=== PATIENT | female | born 1955 | race Caucasian/White ===

== ENCOUNTER 2021-02-28 08:45 | Day surgery (SDC) | payer MEDICARE, OTHER ==
--- NOTE | 2021-02-15 11:25 | NUR ---
Patient is having a right total knee replacement on 02/28. She will be getting a walker and will bring it the day of surgery. She has a ramp into her house and 2 stairs to her bedroom. She has a walk-in shower, a hand-held shower head. They have ordered a toilet seat riser. She lives with her . He will be taking her to her physical therapy appts. Her first appt. is on 03/07.
[~2021-02-28] VITALS: Ht 160 cm; Wt 67.6 kg
[~2021-02-28 08:45] MED LIST: ALEVE220 M1; HAIR SKIN NAIL1 EACH; NORCO 5-325 TA1 EACH PO
[2021-02-28] MEDS ORDERED: CELECOXIB200 MG PO (12:55)
[2021-02-28] MEDS ORDERED: XARELTO10 MG PO (12:55)
[2021-02-28] MEDS ORDERED: ASPIRIN EC325 MG PO (12:55)
[2021-02-28] MEDS ORDERED: SENNA LAX8.6 MG PO (12:56)
[2021-02-28] MEDS ORDERED: OXYCODONE HCL5 MG PO (12:56)
[2021-02-28] MEDS ORDERED: GABAPENTIN300 MG PO (12:56)
--- NOTE | 2021-02-28 13:07 | NUR ---
02/28/21 1307 Nakita Phipps 1300- PT ARRIVES TO PACU AROUSABLE TO VOICE. PT VERY DROWSY AND FALLS ASLEEP WHEN NOT BEING TALKED TO. RESP EVEN AND UNLABORED. OXYGEN SAT HIGH 90'S TO 100% ON 6L VIA MASK. ON-Q PUMP INFUSING AT 4 ML/HR. 1307- CRYOCUFF PLACED TO PT'S RIGHT KNEE WITH DRESSING IN BETWEEN SKIN AND CRYOCUFF BY LUCHO KLEIN RN.
--- NOTE | 2021-02-28 14:44 | NUR ---
1334: PT ARRIVES TO UNIT VIA STRETCHER FROM PACU. ALERT AND ORIENTED. CONVERSES WITH RN. VSS, RESP EVEN AND UNLABORED. CMS WNL. CRYO CUFF, SCDS AND COMPRESSION SOCKS IN PLACE. DRESSING WITH SMALL AMOUNT OF SHADOWING, WILL CONT TO OBSERVE. DENIES PAIN AND NAUSEA AT THIS TIME. SPINAL LEVEL T-5. ICE WATER AND APPLE SAUCE PROVIDED. ATTENTIVE AT THE BEDSIDE. NO NEEDS VOICED, CALL LIGHT WITHIN REACH 1427: PT WITH CALL FOR RN. REPORTS INCREASING PAIN LEVEL SPINAL LEVEL WEARS OFF. SCHED RX ADMINISTERED ORDERED, SEE PT EMAR. VSS, RESP EVEN AND UNLABORED. CONTS TO DENY NAUSEA. NO CHANGE TO DRESSING AND CMS WNL. NO FURTHER NEEDS VOICED. CALL LIGHT WITHIN REACH
--- NOTE | 2021-02-28 15:03 | NUR ---
1455: PHYSICAL THERAPIST ARRIVES AT THE BEDSIDE FOR THERAPY SESSION. IV CONVERTED TO SL. PT REPORTS IMPROVING PAIN LEVEL. NO NEEDS VOICED
--- NOTE | 2021-02-28 16:11 | NUR ---
1530: PT RETURNS FROM PHYSICAL THERAPY SESSION AND IS CLEARED FOR D/C. DRESSES WITH THE ASSISTANCE OF PT. TC PLACED TO ABIMAEL D/Beatris ORDER AND ORDER FOR 2G ANCEF IV ONCE RECEIVED. 1545: ANCEF ADMINISTERED ORDERED. SL REMOVED AND PRESSURE APPLIED TO SITE. WNL. D/C INSTRUCTIONS PROVIDED AND DISCUSSES ORDERED. PT VOICES UNDERSTANDING AND DENIES QUESTIONS AND CONCERNS AT THIS TIME. VSS, RESP EVEN AND UNLABORED. NO CHANGE TO DRESSING, CMS WNL. CONTS TO DENY PAIN AND NAUSEA. PHYSICAL THERAPIST REPORTS PT WITH LARGE VOID DURING SESSION THAT WAS NON MEASURABLE. 1600: PT WHEELED OFF OF UNIT IN W/C FOR D/C BY THIS RN. TRANSFERS INTO VEHICLE INDEPENDENTLY. NO PHYSICAL S/S OF DISTRESS AT THIS TIME
--- NOTE | 2021-03-10 11:04 | OR ---
[facility] [address] [place], [place] [address] Signed DATE OF OPERATION: 02/28/2021 SURGEON: Johanny Mendes MD PREOPERATIVE DIAGNOSIS: Degenerative joint disease, left knee. POSTOPERATIVE DIAGNOSIS: Degenerative joint disease, left knee. PROCEDURE PERFORMED: Left total knee arthroplasty with Edwar. ASSISTANCE REPRESENTATIVE: Shani Walker PA-C. Shani was present and critical for all portions of procedure. ANESTHESIA: Spinal. BLOOD LOSS: 160 mL. IMPLANTS: Nilton Triathlon size 4 femur, 3 tibia, 9 mm polyethylene and a 32 mm patella. BRIEF HISTORY: Aniyah is a 65-year-old female with progressive worsening pain in her knee. She had undergone nonoperative treatment without success, wished to proceed with operative. Risks and benefits of operative treatment were discussed with her and she elected to proceed. DESCRIPTION OF PROCEDURE: Once consent was obtained, she was taken to the operating room. After adequate anesthesia, she was placed on operating room table. All downside pressure points were well padded and a hip bump was placed. The leg was then prepped and draped in a standard sterile fashion, no tourniquet was applied. The incision was carried through the skin and subcutaneous tissue. A mid vastus approach was undertaken and the patella was mobilized laterally. The infrapatellar fat pad was excised and the MCL was elevated with a sleeve around the posteromedial corner. The computer rays for the Edwar assist Electronically Signed By: JOHANNY MENDES MD 03/02/21 0702 Electronically Signed By: JOHANNY MENDES MD 03/11/21 0657 PATIENT NAME: ANIYAH STEVENSON OPERATIVE REPORT DATE OF : 53 REPORT #: [id number] PHYSICIAN: JOHANNY MENDES MD PCP: ANNIE BAIRD DO REPORT IS CONFIDENTIAL AND NOT TO BE RELEASED WITHOUT AUTHORIZATION [facility] [address] [place], [place] [address] Signed were then placed percutaneously in the tibia and in the medial femoral condyle. The leg was then registered with computer as was the fine anatomic points. The varus valgus testing was undertaken and the plan was adjusted by 1 degree. Once this was completed, the robot was brought in and the straight cuts were made followed by the angle cuts. Care was taken to protect the patellar tendon and MCL throughout this portion of the procedure. All bony fragments were removed as were any osteophytes. She did not have any osteophytes posteriorly and no release was performed. The trials were then positioned. Knee was taken through range of motion and had excellent motion from 0 to 140 degrees of flexion. The patella was cut sized and drilled for a 32 mm patella. The femoral drill holes were finished using the drill and the keel punch was finished using the punch. The bone was pulse lavaged and packed with dry Ray-Cornelio. The bone was quite soft, so we elected to go with the hybrid prosthesis. The cement was mixed and when it reached proper consistency, it was placed on the tibia and patellar implants as well as the corresponding bone. The patella was impacted in position first followed by removal of all the excess. The polyethylene was snapped into position. The femur was impacted until it was well-seated and firm. The knee was then extended and nicely loaded. The patella was clamped into position. Again all overflow was removed. The cement was allowed to harden. Once it hardened sufficiently, the knee was flexed, any remaining pieces were removed. The periarticular soft tissues were injected with 100 mL ropivacaine Toradol mixture. We then irrigated the knee with a total of 3 L normal saline. Pulse lavage irrigation was used. In the midst of this, we did do a soak with Aricept. The On-Q pain pump was percutaneously placed in the adductor canal from a suprapatellar approach. The arthrotomy was then closed using #2 Stratafix, the subcutaneous tissue with #0 Stratafix, and the skin with 3-0 #0 Stratafix. Steri-Strips were applied. The wound was dressed with Acticoat 7, ABDs and Gunner wrap. She tolerated the procedure well. All sponge, needle, and instrument counts were correct. Johanny Mendes MD BA/MODL /[id number] Electronically Signed By: JOHANNY MENDES MD 03/02/21 0702 Electronically Signed By: JOHANNY MENDES MD 03/11/21 0657 PATIENT NAME: ANIYAH STEVENSON OPERATIVE REPORT DATE OF : 53 REPORT #: [id number] PHYSICIAN: JOHANNY MENDES MD PCP: ANNIE BAIRD DO REPORT IS CONFIDENTIAL AND NOT TO BE RELEASED WITHOUT AUTHORIZATION [address] [address] Signed Copies: ~ Electronically Signed By: JOHANNY MENDES MD 03/02/21 0702 Electronically Signed By: JOHANNY MENDES MD 03/11/21 0657 PATIENT NAME: ANIYAH STEVENSON [facility] OPERATIVE REPORT DATE OF : 53 REPORT #: [id number] PHYSICIAN: JOHANNY MENDES MD PCP: ANNIE BAIRD DO REPORT IS CONFIDENTIAL AND NOT TO BE RELEASED WITHOUT AUTHORIZATION
== END 2021-02-28 16:00 | disposition home or self-care (01) ==
LOC: DS 08:45
PROVIDERS: ATTEND Specialist
PROC: 8E0YXBZ Computer Assisted Procedure of Lower Extremity (ICD-10-PCS; 2021-02-28)
PROC: 0SRD0J9 Replacement of Left Knee Joint with Synthetic Substitute, Cemented, Open Approach (ICD-10-PCS; principal; 2021-02-28 11:15)
DX: M17.12 Unilateral primary osteoarthritis, left knee (principal); G89.18 Other acute postprocedural pain; S83.231A Complex tear of medial meniscus, current injury, right knee, initial encounter; E78.5 Hyperlipidemia, unspecified; Z87.891 Personal history of nicotine dependence
CPT/HCPCS: 01402; 64447; 64450; 76942; 97110; 97161; C1713; C1776; J0690; J1100; J1885; J2250; J2704; J7121

== ENCOUNTER 2021-06-17 15:36 | Emergency (ER) | payer MEDICARE, OTHER ==
[~2021-06-17] VITALS: Ht 160 cm; Wt 67.1 kg
[~2021-06-17 15:36] MED LIST changes: +ASPIRIN EC325 MG PO; +CELECOXIB200 MG PO; +GABAPENTIN300 MG PO; +OXYCODONE HCL5 MG PO; +SENNA LAX8.6 MG PO; +XARELTO10 MG PO
--- OUTSIDE RECORDS SUMMARY | 2021-06-17 15:38 | XMS ---
PreManage Notification: BROOKLYN STEVENSON Security Pharmacy Clinical Coordinator Events No recent Security Events currently on file CRITERIA MET - [facility] There are no care providers on record at this time. Humberto has no Care Guidelines for this patient. Koko VISIT COUNT (12 MO.) 1 TICO John TOTAL 1 NOTE: Visits indicate total known visits. ED/UCC VISIT TRACKING (12 MO.) 06/17/2021 15:36 TICO [facility] [place] TYPE: Emergency COMPLAINT: - URINE PROBLEM INPATIENT VISIT TRACKING (12 MO.) No inpatient visits to display in this time frame [email or web address]
[2021-06-17] MEDS ORDERED: CIPRO500 MG PO (18:17)
== END 2021-06-17 18:51 | disposition home or self-care (01) ==
LOC: ED 15:36
DX: N30.90 Cystitis, unspecified without hematuria (principal); Z87.891 Personal history of nicotine dependence
CPT/HCPCS: 81001; 87088; 99283

== ENCOUNTER 2021-11-22 07:35 | Day surgery (SDC) | payer MEDICARE, OTHER ==
[~2021-11-22] VITALS: Ht 162.6 cm; Wt 73.5 kg
[~2021-11-22 07:35] MED LIST changes: +CIPRO500 MG PO; +PROBIOTIC250 MG PO; +VITAMIN C100 MG PO
[2021-11-22] MEDS ORDERED: VITAMIN B-12250 MCG PO (07:54)
--- NOTE | 2021-11-22 09:53 | NUR ---
11/22/21 0953 Rosana Gomes 0976-PATIENT ARRIVED TO PACU ON 2L NC RR EVEN REACTIVE TO VERBAL STIMULI OPENING EYES VERY DROWSY. ABDOMEN SOFT ENCOURAGED TO PASS GAS. IVF INFUSING. PATIENT LAYING LEFT LATERAL. DOZES BACK TO SLEEP.
--- NOTE | 2021-11-23 08:08 | OR ---
[facility] [address], [place] [address] Signed DATE OF OPERATION: 11/22/2021 SURGEON: Chris Huber MD PREOPERATIVE DIAGNOSES: 1. Internal hemorrhoids. 2. Hyperplastic polyp on the ileocecal valve, age 55. 3. Change in bowel habits with a change in caliber of stool. POSTOPERATIVE DIAGNOSIS: 1. A 4 mm polyp at 65 cm. 2. A 4 mm polyp at 38 cm. 3. Moderate internal hemorrhoids. PROCEDURE: Colonoscopy with hot biopsy. ESTIMATED BLOOD LOSS: None. INDICATIONS: Aniyah is a 66-year-old female, who returns for followup colonoscopy. At age 51 in 2010, she underwent a colonoscopy for left lower quadrant abdominal pain and intermittent rectal bleeding. She had internal hemorrhoids. She came back in 2010 at the age of 55 at the request of her primary care provider. She had a tiny hyperplastic polyp removed off the ileocecal valve. She did well with Versed and fentanyl during both colonoscopies. She returns now 10 years later to repeat her colonoscopy. She is now retired. She is very busy, taking care of various family members, including an adopted grand-baby. She describes a change in bowel habits. She said there are days when the stools round, but other days it is more ribbon like. It could be from the hemorrhoids, but she has obviously noted a change. There is no family history of colon cancer or polyps. In the office, I gave her a pamphlet on colonoscopy. She recalls the nature of the test. There is risk including, but not limited to gas bloating, crampy abdominal pain, bleeding, perforation requiring surgery, and missed diagnosis. We also reviewed the need for IV conscious sedation. She had expressed understanding and wished to proceed. DESCRIPTION OF PROCEDURE: Aniyah was taken into our endoscopy suite and placed in the left lateral decubitus position. She was given a total of 150 mcg of fentanyl and 4 mg of Versed to cover the Electronically Signed By: CHRIS HUBER MD 11/23/21 0808 PATIENT NAME: ANIYAH STEVENSON [facility] OPERATIVE REPORT DATE OF : 53 REPORT #: [id number] PHYSICIAN: CHRIS HUEBR MD PCP: ANNIE BAIRD DO REPORT IS CONFIDENTIAL AND NOT TO BE RELEASED WITHOUT AUTHORIZATION [facility] [address], [place] [address] Signed case. She was given antibiotics because of the right knee replacement. A digital rectal exam was performed and really not much in the way of any external hemorrhoids. She had good sphincter tone. There were no masses. The adult colonoscope was introduced and advanced all around into the cecum under direct visualization of camera without difficulty. Her prep was quite excellent. We could easily see the appendiceal orifice and ileocecal valve. The scope had been slowly withdrawn. The above-mentioned polyps were easily removed with the help of a hot biopsy forceps. Once in the rectum, the scope had been retroflexed and she does have moderate sized internal hemorrhoids. After this, the gas was suctioned out. The colonoscope removed. Aniyah tolerated the procedure quite well. RECOMMENDATIONS: I will see Aniyah back in my office in 7 to 10 days to review her results. She may continue on the 10-year rotation depending on her pathology results. Chris Huber MD ALB/MODL /[id number] cc: DO Chris Walden MD Patient's Chart Copies: ANNIE BAIRD ANDREW L MD ~ Electronically Signed By: CHRIS HUBER MD 11/23/21 0808 PATIENT NAME: ANIYAH STEVENSON [facility] OPERATIVE REPORT DATE OF : 53 REPORT #: [id number] PHYSICIAN: CHRIS HUBER MD PCP: ANNIE BAIRD DO REPORT IS CONFIDENTIAL AND NOT TO BE RELEASED WITHOUT AUTHORIZATION
--- NOTE | 2021-11-24 08:49 | PATH ---
[facility] [address] [facility] [place], [place] [address] Signed SPECIMEN(S): A POLYP AT 65 CM SPECIMEN(S): B POLYP AT 38 CM SPECIMEN SOURCE: A. POLYP AT 65 CM B. POLYP AT 38 CM CLINICAL HISTORY: Personal history of colon polyps, change in bowel movements. Post-op: Internal hemorrhoids, polyps. FINAL PATHOLOGIC DIAGNOSIS: A. Colon, 65 cm, polypectomy: - Colonic mucosa with a prominent lymphoid aggregate. B. Colon, 38 cm, polypectomy: - Colonic mucosa with no significant pathologic changes. BRP:[facility]:C2NR MICROSCOPIC EXAMINATION: Histologic sections of all submitted blocks are examined by light microscopy. These findings, together with the gross examination, support the pathologic diagnosis. GROSS DESCRIPTION: Two specimens are received in two containers, labeled "GG." A. The specimen, labeled "GG," and designated on the requisition "polyp at 65 cm," is received in formalin and consists of two schulte soft tissue fragments that measure 0.2 to 0.3 cm in greatest dimension. The specimen is entirely submitted in cassette (A1). B. The specimen, labeled "GG," and designated on the requisition "polyp at 38 cm," is received in formalin and consists of one schulte soft tissue fragment that measures 0.3 cm in greatest dimension. The specimen is entirely submitted in cassette (B1). AT (under the direct supervision of a pathologist) The Gross Description was prepared using a voice recognition system. The report was reviewed for accuracy; however, sound-alike word errors, addition and/or deletions may occur. If there is any question about this report, please contact Client Services. PERFORMING LABORATORY: The technical component was performed by [facility], Zaira Blancodelmi Michael, PATIENT NAME: BROOKLYN STEVENSON PATHOLOGY DATE OF : 53 REPORT #: [id number] PHYSICIAN: [facility] PCP: ANNIE BAIRD DO REPORT IS CONFIDENTIAL AND NOT TO BE RELEASED WITHOUT AUTHORIZATION [facility] [address] [facility] [place], [place] [address] [place] [address] (CLIA# [id number]). The professional interpretation was performed by [facility], [facility], [facility] [address] [place] [address] (CLIA#: [id number]). Diagnostician: Pablo Swanson MD Pathologist Electronically Signed 11/24/2021 Copies: ~ PATIENT NAME: BROOKLYN STEVENSON URI PATHOLOGY DATE OF : 53 REPORT #: [id number] PHYSICIAN: [facility] PCP: ANNIE BAIRD DO REPORT IS CONFIDENTIAL AND NOT TO BE RELEASED WITHOUT AUTHORIZATION
== END 2021-11-22 10:30 | disposition home or self-care (01) ==
LOC: OPS 07:35 → DS 07:35 → OPS 09:00
PROVIDERS: ATTEND Colon & Rectal Surgery
PROC: 0DBE8ZZ Excision of Large Intestine, Via Natural or Artificial Opening Endoscopic (ICD-10-PCS; principal; 2021-11-22 09:00)
DX: K63.5 Polyp of colon (principal); K64.8 Other hemorrhoids; R19.4 Change in bowel habit; Z87.891 Personal history of nicotine dependence; Z96.651 Presence of right artificial knee joint
CPT/HCPCS: 88305; 99153; G0500; J0690; J2250; J3010; J7121